=== PATIENT | male | born 1990 | race African-American/Black ===

== ENCOUNTER 2021-06-13 10:30 | Emergency (ER) | payer OTHER ==
[2021-06-13 10:52] VITALS: BP 118/71; PULSE 91; TEMP 98.1; BMI 22.3
[2021-06-13] MEDS ORDERED: diazePAM 5 MG TABLET PO ONE (12:44)
[2021-06-13] MEDS ORDERED: KETOROLAC TROMETHAMINE 30 MG/1 ML VIAL IM ONE (12:44)
[2021-06-13] MEDS ORDERED: KETOROLAC TROMETHAMINE 30 MG/1 ML VIAL ONE (12:49)
[2021-06-13] MEDS ORDERED: diazePAM 5 MG TABLET ONE (12:50)
== END 2021-06-13 13:15 | disposition home or self-care (01) ==
LOC: JERFT 10:30 → JER 10:30 → JERFT 13:15
PROC: 3E023GC Introduction of Other Therapeutic Substance into Muscle, Percutaneous Approach (ICD-10-PCS; principal; 2021-06-13)
DX: S29.012A Strain of muscle and tendon of back wall of thorax, initial encounter (principal); V49.40XA Driver injured in collision with unspecified motor vehicles in traffic accident, initial encounter
CPT/HCPCS: 72070-TC-FY; 72100-TC-FY; 99284-25

== ENCOUNTER 2022-12-15 07:33 | Emergency (ER) | payer OTHER ==
[2022-12-15 07:37] VITALS: BMI 22.3
[2022-12-15] MEDS ORDERED: KETOROLAC TROMETHAMINE 15 MG/ML VIAL IVPUSH ONE (07:39)
[2022-12-15] MEDS ORDERED: SODIUM CHLORIDE 1,000 ML IV STA ×2 (07:40→09:32)
[2022-12-15] MEDS ORDERED: morphine CARPU-JECT 4 MG/1 ML DISP.SYRIN IVPUSH ONE (07:40)
[2022-12-15] MEDS ORDERED: morphine SULFATE 4 MG/ML VIAL ONE (08:10)
[2022-12-15] MEDS ORDERED: KETOROLAC TROMETHAMINE 15 MG/ML VIAL ONE (08:10)
[2022-12-15 09:13] LABS: CHLORIDE 101 mmol/L (98-107); SODIUM 139 mmol/L (136-145)
[2022-12-15 09:14] LABS: BASO % 0.2 % (0-2.0); EOS % 0.8 % (0-4.5); HEMATOCRIT 42.6 % (35.4-49); LYMPH % 4.4 % (8-40); MCH 26.9 pg (25.7-33.7); MCHC 32.8 g/dl (32.0-35.9); MEAN CELL VOLUME 82.1 fl (80-96); MEAN PLT VOLUME 8.1 fl (7.5-11.1); MONO % 16.9 % (3.8-10.2); NEUT % 77.7 % (42.8-82.8); PLATELET COUNT 228 10^3/uL (134-434); RBC 5.18 M/mm3 (4.00-5.60); RDW 14.7 % (11.9-15.9); WHITE BLOOD COUNT 7.9 K/mm3 (4.0-10.0)
[2022-12-15 09:15] LABS: CALCIUM 9.5 mg/dL (8.5-10.1)
[2022-12-15 09:16] LABS: ALBUMIN 3.9 g/dl (3.4-5.0); ANION GAP 9 MMOL/L (8-16); BLOOD UREA NITROGEN 8.4 mg/dL (7-18); CO2 29 mmol/L (21-32); GLUCOSE,RANDOM 80 mg/dL (74-106); MAGNESIUM 1.8 mg/dL (1.8-2.4)
[2022-12-15 09:19] LABS: CREATININE 1.4 mg/dL (0.55-1.3); SGOT/AST 68 U/L (15-37); SGPT/ALT 84 U/L (13-61)
[2022-12-15 09:20] LABS: TOT PROT 7.9 g/dl (6.4-8.2)
[2022-12-15 09:21] LABS: BILIRUBIN,TOTAL 0.6 mg/dL (0.2-1)
[2022-12-15 09:22] LABS: ALK PHOS 77 U/L (45-117)
[2022-12-15 10:22] LABS: ERYTHROCYTE SEDIMENTATION RATE 2 mm/hr (0-10)
[2022-12-15 10:58] LABS: URINE APPEARANCE CLEAR; URINE BILIRUBIN NEGATIVE (NEGATIVE); URINE COLOR YELLOW; URINE GLUCOSE (UA) NEGATIVE (NEGATIVE); URINE KETONE NEGATIVE (NEGATIVE); URINE LEUK ESTERASE NEGATIVE (NEGATIVE); URINE NITRITE NEGATIVE (NEGATIVE); URINE PROTEIN NEGATIVE (NEGATIVE); URINE UROBILINOGEN 0.2 mg/dL (0.2-1.0)
[2022-12-15] MEDS ORDERED: ACETAMINOPHEN 1000 MG/100 ML BAG IVPB ONE (11:22)
[2022-12-15] MEDS ORDERED: ACETAMINOPHEN INJECTION 100 ML IVPB ONE (11:23)
[2022-12-15 11:33] VITALS: RESP 18
[2022-12-15 14:13] VITALS: BP 118/66; PULSE 83; TEMP 99.8
== END 2022-12-15 14:31 | disposition home or self-care (01) ==
LOC: JER 07:33
PROC: 3E033NZ Introduction of Analgesics, Hypnotics, Sedatives into Peripheral Vein, Percutaneous Approach (ICD-10-PCS; principal; 2022-12-15)
PROC: 3E0333Z Introduction of Anti-inflammatory into Peripheral Vein, Percutaneous Approach (ICD-10-PCS; 2022-12-15)
PROC: 3E033GC Introduction of Other Therapeutic Substance into Peripheral Vein, Percutaneous Approach (ICD-10-PCS; 2022-12-15)
PROC: 3E0337Z Introduction of Electrolytic and Water Balance Substance into Peripheral Vein, Percutaneous Approach (ICD-10-PCS; 2022-12-15)
PROC: 3E0337Z Introduction of Electrolytic and Water Balance Substance into Peripheral Vein, Percutaneous Approach (ICD-10-PCS; 2022-12-15)
DX: U07.1 COVID-19 (principal); K76.0 Fatty (change of) liver, not elsewhere classified; R79.89 Other specified abnormal findings of blood chemistry; R94.5 Abnormal results of liver function studies
CPT/HCPCS: 0241U-QW; 36415; 71045-TC-FY; 74176-TC; 76700-TC; 80053; 81003; 82550; 82553; 83735; 84484; 85025; 85651; 86140; 87040; 93005; 93010; 99285-25